=== PATIENT | male | born 1940 | race African-American/Black ===

== ENCOUNTER 2019-09-05 03:26 | Inpatient (IN) | payer MEDICARE, MEDICAID ==
[~2019-09-05] VITALS: Ht 185.4 cm; Wt 68.9 kg
[~2019-09-05 03:26] MED LIST: ALBU05; BUDE6HFA; CLON2TAB; FLUT1DIS; LANS30CA52; NIFE60TA35; TOPUD
[2019-09-05] MEDS ORDERED: MAGNESIUM 2 G PREMIX 50 ML IV STA (03:35)
[2019-09-05] MEDS ORDERED: IPRATROPIUM BROMIDE (0.02%) 0.5MG/2.5ML NEB HHN STA (03:35)
[2019-09-05] MEDS ORDERED: METHYLPREDNISOLONE SOD SUCC 125 MG/2 ML VIAL IV STA (03:35)
[2019-09-05] MEDS ORDERED: ALBUTEROL (0.083%) 2.5MG/3ML NEB HHN STA (03:35)
[2019-09-05 04:33] LABS: HEMATOCRIT 36.5 % (42.0-52.0); HEMOGLOBIN 11.9 g/dL (14.0-18.0); MEAN CORPUSCULAR HEMOGLOBIN 28.8 pg (28.0-32.0); MEAN CORPUSCULAR VOLUME 88.5 fL (80.0-94.0); PLATELET 266 x1000/uL (130-400); RED BLOOD CELL COUNT 4.13 mill/uL (4.7-6.1); RED CELL DISTRIBUTION WIDTH 12.5 % (11.6-14.6)
[2019-09-05 04:39] LABS: CHLORIDE 100 mEq/L (98-107)
[2019-09-05] MEDS ORDERED: MAGNESIUM/ALUMINUM HYDROXIDE/SIMETHICONE 30ML UDC PO PRN (09:45)
[2019-09-05] MEDS ORDERED: MORPHINE SULFATE 2 MG/ML CPJ (NOT FOR IM USE) IV PRN (09:45)
[2019-09-05] MEDS ORDERED: ONDANSETRON HCL 4MG/2ML INJ IV PRN (09:45)
[2019-09-05] MEDS ORDERED: ACETAMINOPHEN 325MG TABLET PO PRN (09:45)
[2019-09-05] MEDS ORDERED: GUAIFENESIN/DM 600MG/30MG ER TAB 12HR PO SCH (09:45)
[2019-09-05] MEDS ORDERED: TRAMADOL 50MG TABLET PO PRN (09:45)
[2019-09-05] MEDS ORDERED: METOLAZONE 10MG TABLET PO NR (09:45)
[2019-09-05] MEDS ORDERED: NITROGLYCERIN 0.4MG TABLET SL SL PRN (09:45)
[2019-09-05] MEDS ORDERED: DOCUSATE SODIUM 100MG CAPSULE PO PRN (09:45)
[2019-09-05] MEDS ORDERED: NA PHOS,M-B/NA PHOS,DI-BA ENEMA 118ML PR PRN (09:45)
[2019-09-05] MEDS ORDERED: IPRATROPIUM/ALBUTEROL 0.5-3(2.5)MG/3ML NEB NEB PRN (10:00)
[2019-09-05] MEDS ORDERED: LEVOFLOXACIN 500MG PREMIX 100 ML IV SCH (12:15)
[2019-09-05] MEDS: IPRATROPIUM/ALBUTEROL 0.5-3(2.5)MG/3ML NEB HHN SCH ×2 (13:01→20:01)
[2019-09-05] MEDS: METHYLPREDNISOLONE SOD SUCC 125 MG/2 ML VIAL IV SCH ×2 (13:57→20:45)
[2019-09-05] MEDS: ENOXAPARIN 40MG/0.4ML SYR SUBCUT SCH (14:00)
[2019-09-05 16:41] VITALS: BP 135/78
[2019-09-05 17:00] VITALS: BP 135/78
[2019-09-05] MEDS: DILTIAZEM HCL 60MG TABLET PO SCH (18:34)
[2019-09-05 20:00] VITALS: BP 144/77
[2019-09-05] MEDS: GUAIFENESIN 200MG/10ML SUGAR FREE UDC PO PRN (20:45)
[2019-09-05] MEDS: ZOLPIDEM TARTRATE 5MG TABLET PO PRN (20:45)
[2019-09-05] MEDS: GUAIFENESIN/DM 600MG/30MG ER TAB 12HR PO SCH (20:45)
[2019-09-05] MEDS: FAMOTIDINE 20MG TABLET PO SCH (20:45)
[2019-09-06] VITALS (8 sets, daily range): BP systolic 107–166; BP diastolic 61–86
[2019-09-06] MEDS: IPRATROPIUM/ALBUTEROL 0.5-3(2.5)MG/3ML NEB HHN SCH ×6 (00:25→20:53)
[2019-09-06] MEDS: DILTIAZEM HCL 60MG TABLET PO SCH ×4 (01:25→17:30)
[2019-09-06] MEDS: METHYLPREDNISOLONE SOD SUCC 125 MG/2 ML VIAL IV SCH ×3 (06:22→21:17)
[2019-09-06] MEDS: GUAIFENESIN/DM 600MG/30MG ER TAB 12HR PO SCH ×2 (08:36→21:17)
[2019-09-06] MEDS: ZINC SULFATE 220 MG ( 50 ) CAPSULE PO SCH (08:36)
[2019-09-06] MEDS: FAMOTIDINE 20MG TABLET PO SCH ×2 (08:36→21:17)
[2019-09-06] MEDS: ASPIRIN 81MG EC TABLET PO SCH (08:36)
[2019-09-06] MEDS ORDERED: NIFEDIPINE XL 60MG TAB PO SCH (09:00)
[2019-09-06] MEDS: ENOXAPARIN 40MG/0.4ML SYR SUBCUT SCH (13:39)
[2019-09-06] MEDS: LEVOFLOXACIN 500MG PREMIX 100 ML IV SCH (13:39)
[2019-09-06] MEDS: CLONIDINE 0.1MG TABLET PO PRN (17:31)
[2019-09-06] MEDS: GUAIFENESIN 200MG/10ML SUGAR FREE UDC PO PRN (21:17)
[2019-09-06] MEDS: ZOLPIDEM TARTRATE 5MG TABLET PO PRN (21:17)
[2019-09-07] VITALS: BP 134/62
[2019-09-07] MEDS: IPRATROPIUM/ALBUTEROL 0.5-3(2.5)MG/3ML NEB HHN SCH ×6 (00:21→21:28)
[2019-09-07] MEDS: DILTIAZEM HCL 60MG TABLET PO SCH ×4 (00:46→17:19)
[2019-09-07] MEDS: LORAZEPAM 0.5MG TABLET PO PRN ×2 (00:52→22:18)
[2019-09-07 04:00] VITALS: BP 134/83
[2019-09-07] MEDS: METHYLPREDNISOLONE SOD SUCC 125 MG/2 ML VIAL IV SCH (06:13)
[2019-09-07 08:00] VITALS: BP 149/89
[2019-09-07] MEDS: ASPIRIN 81MG EC TABLET PO SCH (09:02)
[2019-09-07] MEDS: ZINC SULFATE 220 MG ( 50 ) CAPSULE PO SCH (09:02)
[2019-09-07] MEDS: GUAIFENESIN/DM 600MG/30MG ER TAB 12HR PO SCH ×2 (09:02→20:09)
[2019-09-07] MEDS: FAMOTIDINE 20MG TABLET PO SCH ×2 (09:02→20:10)
[2019-09-07 12:00] VITALS: BP 129/66
[2019-09-07] MEDS: ENOXAPARIN 40MG/0.4ML SYR SUBCUT SCH (12:55)
[2019-09-07] MEDS: LEVOFLOXACIN 500MG PREMIX 100 ML IV SCH (12:57)
[2019-09-07] MEDS: LEVOFLOXACIN 500MG TABLET PO SCH (13:31)
[2019-09-07 16:00] VITALS: BP 133/59
[2019-09-07 20:00] VITALS: BP 128/83
[2019-09-07] MEDS: ZOLPIDEM TARTRATE 5MG TABLET PO PRN (21:37)
[2019-09-08] MEDS: IPRATROPIUM/ALBUTEROL 0.5-3(2.5)MG/3ML NEB HHN SCH ×7 (01:21→20:33)
[2019-09-08 04:00] VITALS: BP 116/63
[2019-09-08] MEDS: DILTIAZEM HCL 60MG TABLET PO SCH ×4 (06:26→17:42)
[2019-09-08] MEDS: ZINC SULFATE 220 MG ( 50 ) CAPSULE PO SCH (08:51)
[2019-09-08] MEDS: CLONIDINE 0.1MG TABLET PO PRN (08:51)
[2019-09-08] MEDS: ASPIRIN 81MG EC TABLET PO SCH (08:52)
[2019-09-08] MEDS: PREDNISONE 20MG TABLET PO SCH (08:52)
[2019-09-08] MEDS: GUAIFENESIN/DM 600MG/30MG ER TAB 12HR PO SCH ×2 (08:52→20:46)
[2019-09-08] MEDS: FAMOTIDINE 20MG TABLET PO SCH ×2 (08:52→20:46)
[2019-09-08 12:00] VITALS: BP 162/82
[2019-09-08] MEDS: LEVOFLOXACIN 500MG TABLET PO SCH (12:13)
[2019-09-08] MEDS: ENOXAPARIN 40MG/0.4ML SYR SUBCUT SCH (12:13)
[2019-09-08] MEDS ORDERED: AMLODIPINE 10MG TABLET PO NR (13:00)
[2019-09-08 16:00] VITALS: BP 137/77
[2019-09-08 20:00] VITALS: BP 155/79
[2019-09-08] MEDS: ZOLPIDEM TARTRATE 5MG TABLET PO PRN (20:52)
[2019-09-09] VITALS: BP 165/99
[2019-09-09] MEDS: IPRATROPIUM/ALBUTEROL 0.5-3(2.5)MG/3ML NEB HHN SCH ×6 (00:29→20:00)
[2019-09-09] MEDS: DILTIAZEM HCL 60MG TABLET PO SCH ×4 (01:04→17:35)
[2019-09-09 04:00] VITALS: BP 138/67
[2019-09-09 08:00] VITALS: BP 148/79
[2019-09-09] MEDS: FAMOTIDINE 20MG TABLET PO SCH ×2 (08:51→20:55)
[2019-09-09] MEDS: GUAIFENESIN/DM 600MG/30MG ER TAB 12HR PO SCH ×2 (08:51→20:55)
[2019-09-09] MEDS: ASPIRIN 81MG EC TABLET PO SCH (08:51)
[2019-09-09] MEDS: ZINC SULFATE 220 MG ( 50 ) CAPSULE PO SCH (08:54)
[2019-09-09] MEDS: PREDNISONE 20MG TABLET PO SCH (11:14)
[2019-09-09] MEDS: LEVOFLOXACIN 500MG TABLET PO SCH (11:14)
[2019-09-09 12:00] VITALS: BP 153/98
[2019-09-09] MEDS: ENOXAPARIN 40MG/0.4ML SYR SUBCUT SCH (13:38)
[2019-09-09 16:00] VITALS: BP 156/77
[2019-09-09 20:00] VITALS: BP 108/66
[2019-09-09] MEDS: ZOLPIDEM TARTRATE 5MG TABLET PO PRN (20:56)
[2019-09-10] VITALS: BP 131/61
[2019-09-10] MEDS: IPRATROPIUM/ALBUTEROL 0.5-3(2.5)MG/3ML NEB HHN SCH ×5 (01:16→20:20)
[2019-09-10] MEDS: DILTIAZEM HCL 60MG TABLET PO SCH ×4 (01:41→18:23)
[2019-09-10 04:00] VITALS: BP 113/80
[2019-09-10 08:00] VITALS: BP 147/74
[2019-09-10] MEDS: ASPIRIN 81MG EC TABLET PO SCH (08:40)
[2019-09-10] MEDS: FAMOTIDINE 20MG TABLET PO SCH ×2 (08:40→20:52)
[2019-09-10] MEDS: ZINC SULFATE 220 MG ( 50 ) CAPSULE PO SCH (08:40)
[2019-09-10] MEDS: GUAIFENESIN/DM 600MG/30MG ER TAB 12HR PO SCH ×2 (08:40→20:52)
[2019-09-10] MEDS: PREDNISONE 20MG TABLET PO SCH (08:42)
[2019-09-10] MEDS: LEVOFLOXACIN 500MG TABLET PO SCH (11:12)
[2019-09-10 12:00] VITALS: BP 127/79
[2019-09-10] MEDS: ENOXAPARIN 40MG/0.4ML SYR SUBCUT SCH (12:56)
[2019-09-10 16:00] VITALS: BP 147/73
[2019-09-10 20:00] VITALS: BP 124/62
[2019-09-10] MEDS ORDERED: ZOLPIDEM TARTRATE 5MG TABLET PO PRN (21:00)
[2019-09-11 00:30] VITALS: BP 137/77
[2019-09-11] MEDS: IPRATROPIUM/ALBUTEROL 0.5-3(2.5)MG/3ML NEB HHN SCH ×6 (00:37→20:36)
[2019-09-11] MEDS: DILTIAZEM HCL 60MG TABLET PO SCH ×4 (00:59→17:59)
[2019-09-11 08:00] VITALS: BP 120/82
[2019-09-11] MEDS: GUAIFENESIN/DM 600MG/30MG ER TAB 12HR PO SCH ×2 (08:31→21:59)
[2019-09-11] MEDS: PREDNISONE 20MG TABLET PO SCH (08:31)
[2019-09-11] MEDS: ASPIRIN 81MG EC TABLET PO SCH (08:31)
[2019-09-11] MEDS: ZINC SULFATE 220 MG ( 50 ) CAPSULE PO SCH (08:31)
[2019-09-11] MEDS: FAMOTIDINE 20MG TABLET PO SCH (09:00)
[2019-09-11 12:00] VITALS: BP 139/82
[2019-09-11] MEDS: LEVOFLOXACIN 500MG TABLET PO SCH (13:34)
[2019-09-11] MEDS: ENOXAPARIN 40MG/0.4ML SYR SUBCUT SCH (13:35)
[2019-09-11 16:00] VITALS: BP 179/61
[2019-09-11 20:00] VITALS: BP 136/76
[2019-09-11] MEDS: FAMOTIDINE 40MG TABLET PO SCH (23:30)
[2019-09-11] MEDS: ZOLPIDEM TARTRATE 5MG TABLET PO PRN (23:31)
[2019-09-12] VITALS: BP 136/70
[2019-09-12] MEDS: DILTIAZEM HCL 60MG TABLET PO SCH ×4 (01:02→18:17)
[2019-09-12] MEDS: IPRATROPIUM/ALBUTEROL 0.5-3(2.5)MG/3ML NEB HHN SCH ×5 (03:00→21:07)
[2019-09-12 04:00] VITALS: BP 146/83
[2019-09-12 08:00] VITALS: BP 143/74
[2019-09-12] MEDS: GUAIFENESIN/DM 600MG/30MG ER TAB 12HR PO SCH ×2 (08:42→21:02)
[2019-09-12] MEDS: ZINC SULFATE 220 MG ( 50 ) CAPSULE PO SCH (08:42)
[2019-09-12] MEDS: ASPIRIN 81MG EC TABLET PO SCH (08:42)
[2019-09-12] MEDS: PREDNISONE 20MG TABLET PO SCH (08:42)
[2019-09-12] MEDS: FAMOTIDINE 40MG TABLET PO SCH ×2 (08:42→21:02)
[2019-09-12] MEDS: ENOXAPARIN 40MG/0.4ML SYR SUBCUT SCH (08:43)
[2019-09-12] MEDS: LEVOFLOXACIN 500MG TABLET PO SCH (11:47)
[2019-09-12 12:00] VITALS: BP 145/82
[2019-09-12 12:42] LABS: HEMATOCRIT. 36.7 % (42.0-52.0); HEMOGLOBIN. 11.7 g/dL (14.0-18.0); MEAN CORPUSCULAR HEMOGLOBIN 28.1 pg (28.0-32.0); MEAN CORPUSCULAR VOLUME 88.5 fL (80.0-94.0); MEAN PLATELET VOLUME 9.2 fl (7.4-10.4); PLATELET 267 x1000/uL (130-400); RED BLOOD CELL COUNT 4.15 mill/uL (4.7-6.1); RED CELL DISTRIBUTION WIDTH 12.4 % (11.6-14.6)
[2019-09-12 12:43] LABS: CHLORIDE 92 mEq/L (98-107)
[2019-09-12 13:55] LABS: PLATELET ESTIMATE NORMAL
[2019-09-12 16:00] VITALS: BP 147/91
[2019-09-12 20:00] VITALS: BP 123/69
[2019-09-12] MEDS: ZOLPIDEM TARTRATE 5MG TABLET PO PRN (21:02)
[2019-09-13] VITALS: BP 102/62
[2019-09-13] MEDS: IPRATROPIUM/ALBUTEROL 0.5-3(2.5)MG/3ML NEB HHN SCH ×6 (00:52→21:34)
[2019-09-13 04:00] VITALS: BP 146/80
[2019-09-13] MEDS: DILTIAZEM HCL 60MG TABLET PO SCH ×4 (06:27→18:47)
[2019-09-13 08:00] VITALS: BP 120/81
[2019-09-13] MEDS: ZINC SULFATE 220 MG ( 50 ) CAPSULE PO SCH (09:57)
[2019-09-13] MEDS: ASPIRIN 81MG EC TABLET PO SCH (09:57)
[2019-09-13] MEDS: GUAIFENESIN/DM 600MG/30MG ER TAB 12HR PO SCH ×2 (09:57→21:24)
[2019-09-13] MEDS: FAMOTIDINE 40MG TABLET PO SCH ×2 (09:57→21:24)
[2019-09-13 12:00] VITALS: BP 97/52
[2019-09-13] MEDS: LEVOFLOXACIN 500MG TABLET PO SCH (12:00)
[2019-09-13] MEDS: PREDNISONE 20MG TABLET PO SCH (12:00)
[2019-09-13] MEDS: ENOXAPARIN 40MG/0.4ML SYR SUBCUT SCH (14:20)
[2019-09-13 16:00] VITALS: BP 114/82
[2019-09-13 20:00] VITALS: BP 112/65
[2019-09-13] MEDS: ZOLPIDEM TARTRATE 5MG TABLET PO PRN (21:24)
[2019-09-14] MEDS: DILTIAZEM HCL 60MG TABLET PO SCH ×4 (00:40→18:33)
[2019-09-14 04:00] VITALS: BP 127/64
[2019-09-14 06:00] VITALS: BP 127/64
[2019-09-14 08:00] VITALS: BP 130/74
[2019-09-14] MEDS: IPRATROPIUM/ALBUTEROL 0.5-3(2.5)MG/3ML NEB HHN SCH ×3 (08:09→15:26)
[2019-09-14] MEDS: GUAIFENESIN/DM 600MG/30MG ER TAB 12HR PO SCH (09:00)
[2019-09-14] MEDS: ZINC SULFATE 220 MG ( 50 ) CAPSULE PO SCH (10:17)
[2019-09-14] MEDS: PREDNISONE 20MG TABLET PO SCH (10:17)
[2019-09-14] MEDS: ASPIRIN 81MG EC TABLET PO SCH (10:17)
[2019-09-14 12:00] VITALS: BP 124/63
[2019-09-14] MEDS: FAMOTIDINE 40MG TABLET PO SCH ×2 (13:35→20:02)
[2019-09-14] MEDS: ENOXAPARIN 40MG/0.4ML SYR SUBCUT SCH (13:35)
[2019-09-14 16:00] VITALS: BP 135/70
[2019-09-14 20:00] VITALS: BP 141/78
[2019-09-15 00:05] VITALS: BP 113/85
[2019-09-15] MEDS: GUAIFENESIN/DM 600MG/30MG ER TAB 12HR PO SCH ×3 (00:10→21:19)
[2019-09-15] MEDS: IPRATROPIUM/ALBUTEROL 0.5-3(2.5)MG/3ML NEB HHN SCH ×5 (02:46→20:57)
[2019-09-15 04:00] VITALS: BP 132/69
[2019-09-15] MEDS: DILTIAZEM HCL 60MG TABLET PO SCH ×4 (07:25→17:35)
[2019-09-15 08:00] VITALS: BP 157/87
[2019-09-15] MEDS: ZINC SULFATE 220 MG ( 50 ) CAPSULE PO SCH (09:17)
[2019-09-15] MEDS: ASPIRIN 81MG EC TABLET PO SCH (09:18)
[2019-09-15] MEDS: FAMOTIDINE 40MG TABLET PO SCH ×2 (09:18→21:19)
[2019-09-15 12:00] VITALS: BP 119/63
[2019-09-15] MEDS: ENOXAPARIN 40MG/0.4ML SYR SUBCUT SCH (12:53)
[2019-09-15] MEDS: PREDNISONE 20MG TABLET PO SCH (14:29)
[2019-09-15 16:00] VITALS: BP 142/58
[2019-09-15 20:00] VITALS: BP 134/73
[2019-09-15] MEDS: ZOLPIDEM TARTRATE 5MG TABLET PO PRN (21:19)
[2019-09-16] VITALS: BP 132/75
[2019-09-16] MEDS: DILTIAZEM HCL 60MG TABLET PO SCH ×3 (00:51→13:45)
[2019-09-16] MEDS: IPRATROPIUM/ALBUTEROL 0.5-3(2.5)MG/3ML NEB HHN SCH ×4 (01:00→12:13)
[2019-09-16 04:00] VITALS: BP 148/91
[2019-09-16 08:00] VITALS: BP 141/81
[2019-09-16] MEDS: ASPIRIN 81MG EC TABLET PO SCH (09:49)
[2019-09-16] MEDS: ZINC SULFATE 220 MG ( 50 ) CAPSULE PO SCH (09:49)
[2019-09-16] MEDS: FAMOTIDINE 40MG TABLET PO SCH (09:49)
[2019-09-16] MEDS: GUAIFENESIN/DM 600MG/30MG ER TAB 12HR PO SCH (09:49)
[2019-09-16] MEDS: PREDNISONE 20MG TABLET PO SCH (10:07)
[2019-09-16 12:00] VITALS: BP 149/80
[2019-09-16] MEDS: ENOXAPARIN 40MG/0.4ML SYR SUBCUT SCH (13:46)
[2019-09-16 14:01] VITALS: BP 149/80
[2019-09-19] MEDS ORDERED: ALBU2.5V13 HHN (17:36)
[2019-09-19] MEDS ORDERED: DILT30TA38 PO (17:36)
[2019-09-19] MEDS ORDERED: THEOL PO (17:36)
[2019-09-19] MEDS ORDERED: P20 PO (17:36)
== END 2019-09-16 14:45 | DRG 189 ==
LOC: ER 03:26 → 7WST 04:04 → EDBEDREQSVC 08:20 → CANRESERV 08:24 → ENRESERV 08:24 → SUPCPDRO 09:33 → ENRESERV 14:59
PROVIDERS: ADMIT Internal Medicine; ATTEND Internal Medicine
PROC: 5A09357 Assistance with Respiratory Ventilation, Less than 24 Consecutive Hours, Continuous Positive Airway Pressure (ICD-10-PCS; principal; 2019-09-05)
PROC: 5A09357 Assistance with Respiratory Ventilation, Less than 24 Consecutive Hours, Continuous Positive Airway Pressure (ICD-10-PCS; 2019-09-06)
PROC: 5A09357 Assistance with Respiratory Ventilation, Less than 24 Consecutive Hours, Continuous Positive Airway Pressure (ICD-10-PCS; 2019-09-10)
DX: J96.00 Acute respiratory failure, unspecified whether with hypoxia or hypercapnia (principal); J44.1 Chronic obstructive pulmonary disease with (acute) exacerbation; D63.8 Anemia in other chronic diseases classified elsewhere; I11.0 Hypertensive heart disease with heart failure; Z79.899 Other long term (current) drug therapy
CPT/HCPCS: 36415; 71045; 80048; 80053; 80061; 83036; 85025; 85027; 93005; 93306; 93970; 94640; 94644; 94660; 97162; 97166; 97530; 99291; J1650; J1956; J2930; J3475; J7512

== ENCOUNTER 2019-09-16 19:09 | Inpatient (IN) | payer MEDICARE, MEDICAID ==
[~2019-09-16] VITALS: Ht 185.4 cm; Wt 81.6 kg
[2019-09-16] MEDS ORDERED: METHYLPREDNISOLONE SOD SUCC 125 MG/2 ML VIAL IV STA (21:04)
[2019-09-16] MEDS ORDERED: IPRATROPIUM BROMIDE (0.02%) 0.5MG/2.5ML NEB HHN STA (21:04)
[2019-09-16] MEDS: ALBUTEROL (0.083%) 2.5MG/3ML NEB HHN SCH ×3 (21:30→22:30)
[2019-09-16] MEDS ORDERED: ZOLPIDEM TARTRATE 5MG TABLET PO ONE (22:45)
[2019-09-17] MEDS ORDERED: ALBUTEROL (0.083%) 2.5MG/3ML NEB HHN PRN (07:00)
[2019-09-17] MEDS: PREDNISONE 20MG TABLET PO SCH (07:22)
[2019-09-17] MEDS: IPRATROPIUM/ALBUTEROL 0.5-3(2.5)MG/3ML NEB HHN SCH ×4 (07:23→21:29)
[2019-09-17] MEDS ORDERED: LORAZEPAM 2MG/ML CPJ IM ONE (07:30)
[2019-09-17] MEDS ORDERED: HALOPERIDOL LACTATE 5MG/ML VIAL IM ONE (07:30)
[2019-09-17] MEDS ORDERED: ACETAMINOPHEN 325MG TABLET PO PRN (10:00)
[2019-09-17] MEDS ORDERED: PREDNISONE 20MG TABLET PO SCH (10:00)
[2019-09-17] MEDS ORDERED: ENOXAPARIN 40MG/0.4ML SYR SUBCUT SCH (10:00)
[2019-09-17] MEDS ORDERED: HYDROCODONE/ACETAMINOPHEN 5/325MG TABLET PO PRN (10:00)
[2019-09-17] MEDS ORDERED: ACETAMINOPHEN 650MG SUPP PR PRN (10:00)
[2019-09-17] MEDS ORDERED: GUAIFENESIN 200MG/10ML SUGAR FREE UDC PO PRN (10:00)
[2019-09-17] MEDS ORDERED: DOCUSATE SODIUM 100MG CAPSULE PO PRN (10:00)
[2019-09-17] MEDS ORDERED: ONDANSETRON HCL 4MG/2ML INJ IV PRN (10:00)
[2019-09-17] MEDS ORDERED: ACETAMINOPHEN 650MG/20.3ML UDC GT PRN (10:00)
[2019-09-17] MEDS ORDERED: CLONIDINE 0.1MG TABLET PO PRN (10:00)
[2019-09-17] MEDS ORDERED: NA PHOS,M-B/NA PHOS,DI-BA ENEMA 118ML PR PRN (10:00)
[2019-09-17] MEDS ORDERED: MAGNESIUM/ALUMINUM HYDROXIDE/SIMETHICONE 30ML UDC PO PRN (10:00)
[2019-09-17 13:10] LABS: HEMATOCRIT. 34.8 % (42.0-52.0); MEAN CORPUSCULAR HEMOGLOBIN 28.3 pg (28.0-32.0); MEAN CORPUSCULAR VOLUME 89.2 fL (80.0-94.0); MEAN PLATELET VOLUME 8.7 fl (7.4-10.4); PLATELET 247 x1000/uL (130-400); RED BLOOD CELL COUNT 3.91 mill/uL (4.7-6.1); RED CELL DISTRIBUTION WIDTH 12.8 % (11.6-14.6)
[2019-09-17 13:17] LABS: INR 1.1; PROTHROMBIN TIME 11.4 sec (9.6-11.0)
[2019-09-17 13:19] LABS: CHLORIDE 93 mEq/L (98-107)
[2019-09-17 13:42] LABS: PLATELET ESTIMATE NORMAL
[2019-09-17] MEDS: SODIUM CHLORIDE 0.9% INJ 3ML FLUSH IVF SCH (14:24)
[2019-09-17 16:11] VITALS: BP 132/70
[2019-09-17 16:53] VITALS: BP 132/70
[2019-09-17] MEDS ORDERED: DEXTROSE 50% WATER 50ML SYRINGE IV PRN (17:30)
[2019-09-17] MEDS: INSULIN LISPRO 100 UNITS/ML SUBCUT SCH ×2 (17:46→20:53)
[2019-09-17] MEDS: BLOOD SUGAR DIAGNOSTIC STRIP TEST SCH ×2 (17:46→20:53)
[2019-09-17 20:00] VITALS: BP 159/77
[2019-09-17] MEDS: DIPHENHYDRAMINE 50MG/ML VIAL IV PRN (21:05)
[2019-09-18] VITALS: BP 105/59
[2019-09-18] MEDS: IPRATROPIUM/ALBUTEROL 0.5-3(2.5)MG/3ML NEB HHN SCH ×5 (03:10→21:02)
[2019-09-18 04:00] VITALS: BP 118/60
[2019-09-18] MEDS: SODIUM CHLORIDE 0.9% INJ 3ML FLUSH IVF SCH ×2 (05:13→22:58)
[2019-09-18 08:00] VITALS: BP 147/95
[2019-09-18] MEDS: PREDNISONE 20MG TABLET PO SCH (09:07)
[2019-09-18] MEDS: ENOXAPARIN 40MG/0.4ML SYR SUBCUT SCH (09:07)
[2019-09-18 09:27] LABS: HEMATOCRIT. 28.9 % (42.0-52.0); HEMOGLOBIN. 9.1 g/dL (14.0-18.0); MEAN CORPUSCULAR HEMOGLOBIN 28.3 pg (28.0-32.0); MEAN CORPUSCULAR VOLUME 89.6 fL (80.0-94.0); MEAN PLATELET VOLUME 9.5 fl (7.4-10.4); PLATELET 192 x1000/uL (130-400); RED BLOOD CELL COUNT 3.22 mill/uL (4.7-6.1); RED CELL DISTRIBUTION WIDTH 12.6 % (11.6-14.6)
[2019-09-18 09:32] LABS: CHLORIDE 101 mEq/L (98-107)
[2019-09-18 09:39] LABS: LDL CHOLESTEROL 80 mg/dL (5-100)
[2019-09-18 09:40] LABS: HDL CHOLESTEROL 84 mg/dL (40-59)
[2019-09-18 11:01] LABS: PLATELET ESTIMATE NORMAL
[2019-09-18 12:00] VITALS: BP 134/77
[2019-09-18] MEDS: BLOOD SUGAR DIAGNOSTIC STRIP TEST SCH ×3 (12:40→21:00)
[2019-09-18] MEDS: INSULIN LISPRO 100 UNITS/ML SUBCUT SCH ×3 (13:10→21:00)
[2019-09-18 16:00] VITALS: BP 114/76
[2019-09-18 17:25] LABS: *AMPHETAMINES SCREEN URINE NEGATIVE (NEGATIVE)
[2019-09-18 17:26] LABS: *BARBITURATES SCREEN URINE NEGATIVE (NEGATIVE); *BENZODIAZEPINES SCREEN URINE NEGATIVE (NEGATIVE); *COCAINE SCREEN URINE NEGATIVE (NEGATIVE); METHADONE URINE SCREEN NEGATIVE (NEGATIVE); OPIATES URINE SCREEN NEGATIVE (NEGATIVE)
[2019-09-18 17:27] LABS: CANNABINOID URINE SCREEN NEGATIVE (NEGATIVE); PHENCYCLIDINE URINE SCREEN NEGATIVE (NEGATIVE)
[2019-09-18] MEDS: THEOPHYLLINE ANHYDROUS 80 MG/15 ML 120ML PO SCH ×2 (17:34→22:21)
[2019-09-18] MEDS: METHYLPREDNISOLONE SOD SUCC 40 MG/ML VIAL IV SCH (18:32)
[2019-09-18] MEDS: DILTIAZEM HCL 30MG TABLET PO SCH (19:15)
[2019-09-18 20:00] VITALS: BP 142/73
[2019-09-18] MEDS: DIPHENHYDRAMINE 50MG/ML VIAL IV PRN (22:21)
[2019-09-19] VITALS: BP 128/60
[2019-09-19] MEDS: DILTIAZEM HCL 30MG TABLET PO SCH ×5 (00:31→23:43)
[2019-09-19] MEDS: METHYLPREDNISOLONE SOD SUCC 40 MG/ML VIAL IV SCH ×3 (00:31→16:39)
[2019-09-19 04:00] VITALS: BP 128/89
[2019-09-19] MEDS: IPRATROPIUM/ALBUTEROL 0.5-3(2.5)MG/3ML NEB HHN PRN (04:39)
[2019-09-19] MEDS: SODIUM CHLORIDE 0.9% INJ 3ML FLUSH IVF SCH ×3 (06:06→22:00)
[2019-09-19] MEDS: THEOPHYLLINE ANHYDROUS 80 MG/15 ML 120ML PO SCH ×3 (06:07→22:22)
[2019-09-19] MEDS: BLOOD SUGAR DIAGNOSTIC STRIP TEST SCH ×4 (06:33→22:23)
[2019-09-19 08:00] VITALS: BP 112/73
[2019-09-19] MEDS: INSULIN LISPRO 100 UNITS/ML SUBCUT SCH ×4 (08:10→21:00)
[2019-09-19] MEDS: ENOXAPARIN 40MG/0.4ML SYR SUBCUT SCH (09:04)
[2019-09-19] MEDS: IPRATROPIUM/ALBUTEROL 0.5-3(2.5)MG/3ML NEB HHN SCH ×3 (09:19→19:47)
[2019-09-19 12:00] VITALS: BP 115/69
[2019-09-19 16:00] VITALS: BP 110/63
[2019-09-19] MEDS ORDERED: P20 PO (17:36)
[2019-09-19] MEDS ORDERED: ALBU2.5V13 HHN (17:36)
[2019-09-19] MEDS ORDERED: THEOL PO (17:36)
[2019-09-19] MEDS ORDERED: DILT30TA38 PO (17:36)
[2019-09-19 20:00] VITALS: BP 141/74
[2019-09-19 20:57] LABS: CHLORIDE 92 mEq/L (98-107); HEMATOCRIT. 33.6 % (42.0-52.0); HEMOGLOBIN. 10.6 g/dL (14.0-18.0); MEAN CORPUSCULAR HEMOGLOBIN 28.4 pg (28.0-32.0); MEAN CORPUSCULAR VOLUME 89.5 fL (80.0-94.0); MEAN PLATELET VOLUME 8.9 fl (7.4-10.4); PLATELET 219 x1000/uL (130-400); RED BLOOD CELL COUNT 3.75 mill/uL (4.7-6.1); RED CELL DISTRIBUTION WIDTH 12.7 % (11.6-14.6)
[2019-09-19 21:48] LABS: PLATELET ESTIMATE NORMAL
[2019-09-19] MEDS ORDERED: ZOLPIDEM TARTRATE 5MG TABLET PO NR (22:00)
[2019-09-20] VITALS: BP 142/80
[2019-09-20] MEDS: IPRATROPIUM/ALBUTEROL 0.5-3(2.5)MG/3ML NEB HHN SCH ×2 (00:10→08:25)
[2019-09-20 04:00] VITALS: BP 130/60
[2019-09-20] MEDS: IPRATROPIUM/ALBUTEROL 0.5-3(2.5)MG/3ML NEB HHN PRN ×3 (04:20→17:10)
[2019-09-20] MEDS: THEOPHYLLINE ANHYDROUS 80 MG/15 ML 120ML PO SCH ×3 (05:58→21:52)
[2019-09-20] MEDS: SODIUM CHLORIDE 0.9% INJ 3ML FLUSH IVF SCH ×3 (05:58→21:51)
[2019-09-20] MEDS: DILTIAZEM HCL 30MG TABLET PO SCH ×3 (05:58→17:26)
[2019-09-20] MEDS: BLOOD SUGAR DIAGNOSTIC STRIP TEST SCH ×4 (06:03→21:00)
[2019-09-20 08:00] VITALS: BP 131/67
[2019-09-20] MEDS: INSULIN LISPRO 100 UNITS/ML SUBCUT SCH ×4 (08:10→21:00)
[2019-09-20] MEDS: ENOXAPARIN 40MG/0.4ML SYR SUBCUT SCH (09:55)
[2019-09-20] MEDS: PREDNISONE 20MG TABLET PO SCH ×2 (09:55→17:25)
[2019-09-20 12:00] VITALS: BP 115/64
[2019-09-20 16:00] VITALS: BP 120/68
[2019-09-20 20:00] VITALS: BP 118/94
[2019-09-21] VITALS: BP 151/81
[2019-09-21] MEDS: DILTIAZEM HCL 30MG TABLET PO SCH ×2 (00:31→05:15)
[2019-09-21] MEDS: IPRATROPIUM/ALBUTEROL 0.5-3(2.5)MG/3ML NEB HHN PRN ×2 (00:51→04:47)
[2019-09-21 04:00] VITALS: BP 150/79
[2019-09-21] MEDS: SODIUM CHLORIDE 0.9% INJ 3ML FLUSH IVF SCH (05:14)
[2019-09-21] MEDS: THEOPHYLLINE ANHYDROUS 80 MG/15 ML 120ML PO SCH (05:17)
[2019-09-21 08:00] VITALS: BP 133/71
[2019-09-21] MEDS: INSULIN LISPRO 100 UNITS/ML SUBCUT SCH (08:10)
[2019-09-21] MEDS: BLOOD SUGAR DIAGNOSTIC STRIP TEST SCH (08:22)
[2019-09-21] MEDS: IPRATROPIUM/ALBUTEROL 0.5-3(2.5)MG/3ML NEB HHN SCH ×2 (08:30→12:25)
[2019-09-21] MEDS: PREDNISONE 20MG TABLET PO SCH (09:20)
[2019-09-21] MEDS: ENOXAPARIN 40MG/0.4ML SYR SUBCUT SCH (09:21)
[2019-09-21 10:58] VITALS: BP 133/71
== END 2019-09-21 13:40 | DRG 189 ==
LOC: ER 19:29 → EDBEDREQ 23:25 → EDBEDREQTM 23:25 → ENRESERV 09-17 14:00 → 7WST 09-17 15:30
PROVIDERS: ADMIT Family Medicine; ATTEND Family Medicine
PROC: 02HV33Z Insertion of Infusion Device into Superior Vena Cava, Percutaneous Approach (ICD-10-PCS; principal; 2019-09-17)
PROC: B548ZZA Ultrasonography of Superior Vena Cava, Guidance (ICD-10-PCS; 2019-09-17)
DX: J96.20 Acute and chronic respiratory failure, unspecified whether with hypoxia or hypercapnia (principal); J44.1 Chronic obstructive pulmonary disease with (acute) exacerbation; I25.10 Atherosclerotic heart disease of native coronary artery without angina pectoris; I10 Essential (primary) hypertension; E78.5 Hyperlipidemia, unspecified; E11.9 Type 2 diabetes mellitus without complications; Z87.891 Personal history of nicotine dependence; Z79.899 Other long term (current) drug therapy; Z99.81 Dependence on supplemental oxygen; Z91.14 Patient's other noncompliance with medication regimen
CPT/HCPCS: 36415; 71045; 76937; 80053; 80061; 80305; 82962; 83735; 83880; 84484; 85025; 93005; 94640; 96374; 97162; 97535; 99285; C1725; J1200; J1650; J2920; J2930; J7040; J7512; J7611; J7620; A4315

== ENCOUNTER 2019-10-01 07:35 | Inpatient (IN) | payer MEDICARE, MEDICAID ==
[~2019-10-01] VITALS: Ht 185.4 cm; Wt 81.8 kg
[~2019-10-01 07:35] MED LIST changes: -ALBU05; +ALBU2.5V13 HHN; -BUDE6HFA; -CLON2TAB; +DILT30TA38 PO; -FLUT1DIS; -LANS30CA52; -NIFE60TA35; +P20 PO; +THEOL PO; -TOPUD
[2019-10-01] MEDS ORDERED: METHYLPREDNISOLONE SOD SUCC 125 MG/2 ML VIAL IV STA (08:32)
[2019-10-01] MEDS ORDERED: ALBUTEROL (0.083%) 2.5MG/3ML NEB HHN STA (08:32)
[2019-10-01] MEDS ORDERED: IPRATROPIUM BROMIDE (0.02%) 0.5MG/2.5ML NEB HHN STA (08:32)
[2019-10-01 09:47] LABS: BASOPHILS % 0.4 % (0.0-2.0); EOSINOPHILS % 0.3 % (0.0-5.0); HEMATOCRIT. 34.2 % (42.0-52.0); LYMPHOCYTES % 9.7 % (20.0-50.0); MEAN CORPUSCULAR VOLUME 90.3 fL (80.0-94.0); MEAN PLATELET VOLUME 7.5 fl (7.4-10.4); MONOCYTES % 6.7 % (2.0-8.0); NEUTROPHILS % 82.9 % (40.0-76.0); PLATELET 293 x1000/uL (130-400); RED BLOOD CELL COUNT 3.78 mill/uL (4.7-6.1); RED CELL DISTRIBUTION WIDTH 13.5 % (11.6-14.6)
[2019-10-01 09:54] LABS: CHLORIDE 96 mEq/L (98-107)
[2019-10-01] MEDS ORDERED: ONDANSETRON HCL 4MG/2ML INJ IV PRN (12:45)
[2019-10-01] MEDS ORDERED: ACETAMINOPHEN 325MG TABLET PO PRN (12:45)
[2019-10-01] MEDS ORDERED: IPRATROPIUM/ALBUTEROL 0.5-3(2.5)MG/3ML NEB HHN PRN (12:45)
[2019-10-01 15:50] LABS: *AMPHETAMINES SCREEN URINE NEGATIVE (NEGATIVE)
[2019-10-01 15:51] LABS: *BARBITURATES SCREEN URINE NEGATIVE (NEGATIVE); *BENZODIAZEPINES SCREEN URINE NEGATIVE (NEGATIVE); *COCAINE SCREEN URINE NEGATIVE (NEGATIVE); METHADONE URINE SCREEN NEGATIVE (NEGATIVE); OPIATES URINE SCREEN NEGATIVE (NEGATIVE)
[2019-10-01 15:52] LABS: CANNABINOID URINE SCREEN NEGATIVE (NEGATIVE); PHENCYCLIDINE URINE SCREEN NEGATIVE (NEGATIVE)
[2019-10-01 18:03] LABS: BG BASE EXCESS 14.7 mmol/L (-2.0-2.0); BG CARBOXYHEMOGLOBIN 0.2 % (0.5-1.5); BG DEOXYHEMOGLOBIN 9.2 % (0.0-5.0); BG FRACTION INSPIRED OXYGEN 32; BG METHEMOGLOBIN 0.2 % (0.0-1.5); BG OXYGEN SATURATION 90.8 % (92.0-98.5); BG OXYHEMOGLOBIN 90.4 % (94.0-97.0); BG PCO2 69.7 mmHg (35.0-45.0); BG PH 7.398 (7.350-7.450); BG PO2 57.6 mmHg (75.0-100.0); BG SAMPLE SITE RIGHT RADIAL; BG TOTAL HEMOGLOBIN 10.2 g/dL (12.0-18.0); BG VENT MODE NASAL CANNULA
[2019-10-01 21:47] VITALS: BP 137/77
[2019-10-01] MEDS: IPRATROPIUM/ALBUTEROL 0.5-3(2.5)MG/3ML NEB HHN SCH (23:18)
[2019-10-01] MEDS: METHYLPREDNISOLONE SOD SUCC 40 MG/ML VIAL IV SCH (23:56)
[2019-10-01] MEDS: FUROSEMIDE 40MG/4ML VIAL IVP SCH (23:56)
[2019-10-01] MEDS: ENOXAPARIN 40MG/0.4ML SYR SUBCUT SCH (23:57)
[2019-10-02] VITALS: BP 124/70
[2019-10-02 04:04] VITALS: BP 149/78
[2019-10-02] MEDS: IPRATROPIUM/ALBUTEROL 0.5-3(2.5)MG/3ML NEB HHN SCH ×5 (04:34→21:42)
[2019-10-02 05:04] LABS: HEMATOCRIT. 29.4 % (42.0-52.0); HEMOGLOBIN. 9.7 g/dL (14.0-18.0); MEAN CORPUSCULAR HEMOGLOBIN 29.3 pg (28.0-32.0); MEAN CORPUSCULAR VOLUME 89.3 fL (80.0-94.0); MEAN PLATELET VOLUME 7.7 fl (7.4-10.4); PLATELET 301 x1000/uL (130-400); RED CELL DISTRIBUTION WIDTH 13.4 % (11.6-14.6)
[2019-10-02 05:21] LABS: CHLORIDE 94 mEq/L (98-107)
[2019-10-02] MEDS: METHYLPREDNISOLONE SOD SUCC 40 MG/ML VIAL IV SCH (05:50)
[2019-10-02] MEDS: FUROSEMIDE 40MG/4ML VIAL IVP SCH ×2 (10:31→12:45)
[2019-10-02] MEDS: DILTIAZEM HCL 120MG CAPSULE CD 24HR PO SCH (10:32)
[2019-10-02] MEDS: LOSARTAN POTASSIUM 25 MG TABLET PO SCH (10:32)
[2019-10-02 12:00] VITALS: BP 116/66
[2019-10-02] MEDS: ASPIRIN 81MG TABLET PO SCH (13:59)
[2019-10-02] MEDS: THEOPHYLLINE ANHYDROUS 80 MG/15 ML 120ML PO SCH ×2 (14:00→20:57)
[2019-10-02 16:00] VITALS: BP 131/62
[2019-10-02 17:03] LABS: PLATELET ESTIMATE NORMAL
[2019-10-02] MEDS: PREDNISONE 20MG TABLET PO SCH (17:42)
[2019-10-02 20:00] VITALS: BP 106/52
[2019-10-02] MEDS ORDERED: LORAZEPAM 2MG/ML CPJ IV PRN (20:00)
[2019-10-02] MEDS: ENOXAPARIN 40MG/0.4ML SYR SUBCUT SCH (20:56)
[2019-10-02] MEDS: BUDESONIDE 0.5MG/2ML NEB HHN SCH (21:42)
[2019-10-03] VITALS: BP 116/50
[2019-10-03] MEDS: IPRATROPIUM/ALBUTEROL 0.5-3(2.5)MG/3ML NEB HHN SCH ×5 (00:18→16:55)
[2019-10-03 04:00] VITALS: BP 130/58
[2019-10-03] MEDS: THEOPHYLLINE ANHYDROUS 80 MG/15 ML 120ML PO SCH ×2 (05:22→14:21)
[2019-10-03 08:00] VITALS: BP 132/57
[2019-10-03] MEDS: BUDESONIDE 0.5MG/2ML NEB HHN SCH (08:18)
[2019-10-03] MEDS: FUROSEMIDE 40MG/4ML VIAL IVP SCH (09:08)
[2019-10-03] MEDS: PREDNISONE 20MG TABLET PO SCH (09:08)
[2019-10-03] MEDS: ASPIRIN 81MG TABLET PO SCH (09:09)
[2019-10-03] MEDS: LOSARTAN POTASSIUM 25 MG TABLET PO SCH (09:09)
[2019-10-03] MEDS: DILTIAZEM HCL 120MG CAPSULE CD 24HR PO SCH (09:09)
[2019-10-03 12:00] VITALS: BP 112/60
[2019-10-03 16:00] VITALS: BP 199/62
[2019-10-03 17:36] LABS: HEMATOCRIT. 28.9 % (42.0-52.0); HEMOGLOBIN. 9.2 g/dL (14.0-18.0); MEAN CORPUSCULAR HEMOGLOBIN 28.4 pg (28.0-32.0); MEAN PLATELET VOLUME 7.1 fl (7.4-10.4); PLATELET 311 x1000/uL (130-400); RED BLOOD CELL COUNT 3.25 mill/uL (4.7-6.1); RED CELL DISTRIBUTION WIDTH 13.2 % (11.6-14.6)
[2019-10-03 17:43] LABS: CHLORIDE 92 mEq/L (98-107)
[2019-10-03 17:55] LABS: PLATELET ESTIMATE NORMAL
[2019-10-04] MEDS ORDERED: PREDNISONE 20MG TABLET PO SCH (09:00)
== END 2019-10-03 18:07 | DRG 291 ==
LOC: ER 07:36 → 6WST 12:11 → EDBEDREQ 12:13 → ENRESERV 19:17
PROVIDERS: ADMIT Internal Medicine; ATTEND Internal Medicine
DX: I11.0 Hypertensive heart disease with heart failure (principal); J96.20 Acute and chronic respiratory failure, unspecified whether with hypoxia or hypercapnia; J44.1 Chronic obstructive pulmonary disease with (acute) exacerbation; E44.0 Moderate protein-calorie malnutrition; E87.2 Acidosis; I50.23 Acute on chronic systolic (congestive) heart failure; I42.9 Cardiomyopathy, unspecified; D64.9 Anemia, unspecified; E11.9 Type 2 diabetes mellitus without complications; E66.9 Obesity, unspecified; E87.8 Other disorders of electrolyte and fluid balance, not elsewhere classified; E78.5 Hyperlipidemia, unspecified; J43.9 Emphysema, unspecified; Z60.2 Problems related to living alone; I27.20 Pulmonary hypertension, unspecified; I48.91 Unspecified atrial fibrillation; Z99.81 Dependence on supplemental oxygen; Z87.891 Personal history of nicotine dependence; Z79.899 Other long term (current) drug therapy; Z68.23 Body mass index [BMI] 23.0-23.9, adult
CPT/HCPCS: 36415; 36600; 71045; 80048; 80053; 80305; 82375; 82805; 83735; 83880; 84145; 84484; 85025; 93005; 94640; 96374; 97162; 99285; J1650; J1940; J2060; J2920; J2930; J7512; J7611; J7620; J7626